=== PATIENT | female | born 1955 | race Caucasian/White ===

== ENCOUNTER 2018-11-29 03:54 | Emergency (ER) | payer SELFPAY ==
--- NOTE | 2018-11-29 04:08 | ED Physician Documentation ---
Chest Pain - HISTORIAN Historian: patient - HPI Stated Complaint: chest pain Chief Complaint: Chest Pain Onset: hours (1) Timing: sudden onset Duration: constant Last known Well Date: 11/29/18 Last Known Well Time: 03:00 Last known Well Code/Unknown Code: Unknown Context: sleep Severity: moderate Quality: pressure, tightness, dull Chest Pain Radiation: no radiation Chest Pain Signs/Symptoms: denies: nausea, vomiting, diaphoresis, cool extremities, dizziness, dyspnea, tachypnea, tachycardia, hypotension, palpitations, weakness Worsened By: change in position Relieved By: nothing Further Comments: yes (she states she did wake from a sleep with mid chest pain that "was just painful" and she did take 3 baby asprin. She has had no other meds and no relief. She denies any radiation. She did take a all natural bowel coctail due to being constipated. She has no other complaints.) - ROS CONST: none MS/LYMPH: none GI/: abdominal pain. denies: vomiting, nausea EYES/ENT: none SKIN/ENDO: none NEURO/PSYCH: none - PAST HX AR risk factors: no pertinent history GI disease: none Surgeries/Procedures: none Allergies/Adverse Reactions: Allergies Allergy/AdvReac Type Severity Reaction Status Date / Time Cilantro Allergy Uncoded 11/29/18 04:49 - SOCIAL HX Smoking History: non-smoker Alcohol Use: none Drug Use: none - FAMILY HX Family HX: none - REVIEWED ASSESSMENTS Nursing Assessment Reviewed: Yes Vitals Reviewed: Yes Progress - Progress Progress: 0436: Pain in chest has resolved DG 0535: discussed results and plan she and spouse are agreeable DG ED Results Lab/Radiology - Radiology Radiology Impressions: PA AND LATERAL CHEST HISTORY:Chest pain COMPARISON: None PA and Lateral Chest dated November 29, 2018 demonstrates a normal cardiomediastinal silhouette. Pulmonary vascularity is normal. Lungs are clear. IMPRESSION: NO ACTIVE DISEASE. Electronically signed on Nov 29, 2018 5:19:50 AM CDT by: Lynnette ARCHULETA History: Abdominal pain Two supine views of the abdomen were obtained which demonstrate increased stool throughout much of the colon consistent with mild to moderate constipation. No dilated large or small bowel loops are noted. Small round calcifications are present in the pelvis bilaterally, likely phleboliths. Impression: [id number]-in-[id number] constipation. Nonobstructive bowel gas pattern. Small round calcifications in the pelvis bilaterally, likely phleboliths. Electronically signed on Nov 29, 2018 5:29:27 AM CDT by: Lynnette Johnston Chest Pain Physical Exam - EXAM General Appearance: no acute distress, alert EENT: eye inspection normal, no signs of dehydration Neck: nml inspection Respiratory: no resp. distress, nml breath sounds, other (chest tender with p alpation mid chest ) CVS: reg. rate & rhythm, no murmur Abdomen: soft, normal bowel sounds, no distension, tenderness (epigastric area ) Skin: warm/dry, normal color Extremities: non-tender, normal range of motion, no evidence of injury, no edema Neuro: oriented X3 Discharge Clincal Impression: Chest pain Qualifiers: Chest pain type: unspecified Qualified Code(s): R07.9 - Chest pain, unspecified Referrals: Dulce Jacome PRN [Primary Care Provider] - 2 Days Comments: 1. Increase fluids 2. Increase fiber 3. Follow up with PCP in 2-4 days 4. Return to ER for any increasing concerns Condition: Stable Disposition: 01 HOME, SELF-CARE Decision to Admit: NO Date of Decison to Admit: 11/29/18 Decision Time: 05:35
[2018-11-29] MEDS ORDERED: 0.9 % SODIUM CHLORIDE 1,000 ML IV ONE (04:18)
[2018-11-29] MEDS ORDERED: MAG HYDROX/ALUMINUM HYD/SIMETH 30 ML, Lidocaine 2% Viscous 15 ML PO ONE ×2 (04:18)
[2018-11-29 04:22] LABS: BASOPHILS % 0.7 % (0.0-1.5); NEUTROPHILS # 4.1 # k/uL (1.4-7.7)
[2018-11-29 04:44] LABS: eGFR (Non-African) > 60
--- NOTE | 2018-11-29 05:30 | Diagnostic Imaging Report ---
VANESSA MINAYA [facility] [address] [facility] [address] [place], [place]. [address] Report Submission Date: Nov 29, 2018 5:19:50 AM CDT Patient Study Name: SORAYA DELANEY Date: Nov 29, 2018 4:47:57 AM CDT Modality Type: DX Gender: F Description: CHEST 2VIEW : 53 Institution: [facility] Physician: VANESSA MINAYA PA AND LATERAL CHEST HISTORY:Chest pain COMPARISON: None PA and Lateral Chest dated November 29, 2018 demonstrates a normal cardiomediastinal silhouette. Pulmonary vascularity is normal. Lungs are clear. IMPRESSION: NO ACTIVE DISEASE. Electronically signed on Nov 29, 2018 5:19:50 AM CDT by: Lynnette LARA
--- NOTE | 2018-11-29 05:31 | Diagnostic Imaging Report ---
VANESSA MINAYA [facility] [address] [facility] [address] [place], [place]. [address] Report Submission Date: Nov 29, 2018 5:29:27 AM CDT Patient Study Name: SORAYA DELANEY Date: Nov 29, 2018 5:05:59 AM CDT Modality Type: DX Gender: F Description: ABDOMEN 1VIEW : 53 Institution: [facility] Physician: VANESSA MINAYA KUB History: Abdominal pain Two supine views of the abdomen were obtained which demonstrate increased stool throughout much of the colon consistent with mild to moderate constipation. No dilated large or small bowel loops are noted. Small round calcifications are present in the pelvis bilaterally, likely phleboliths. Impression: [id number] constipation. Nonobstructive bowel gas pattern. Small round calcifications in the pelvis bilaterally, likely phleboliths. Electronically signed on Nov 29, 2018 5:29:27 AM CDT by: Lynnette LARA
[2018-11-29 05:54] VITALS: BP 133/79
== END 2018-11-29 05:50 | disposition home or self-care (01) ==
LOC: ED 03:54
DX: K59.00 Constipation, unspecified (principal); R11.2 Nausea with vomiting, unspecified; R07.89 Other chest pain; R42 Dizziness and giddiness; R53.1 Weakness; R61 Generalized hyperhidrosis; R00.2 Palpitations
CPT/HCPCS: 71046; 74018; 80053; 84484; 85025; 96360; 99284; S1016